=== PATIENT | male | born 1955 | race Caucasian/White ===

== ENCOUNTER 2017-06-30 19:58 | Emergency (ER) | payer BC ==
[~2017-06-30] VITALS: Ht 177.8 cm; Wt 79.5 kg
[2017-06-30 22:46] VITALS: BP 167/79
== END 2017-06-30 22:47 | disposition home or self-care (01) ==
LOC: EME 19:58
DX: L30.9 Dermatitis, unspecified (principal); Z98.890 Other specified postprocedural states
CPT/HCPCS: 99281; 99285